=== PATIENT | male | born 1980 | race Caucasian/White ===

== ENCOUNTER 2018-01-31 15:00 | Emergency (ER) | payer SELFPAY ==
--- OUTSIDE RECORDS SUMMARY | 2018-01-31 15:24 | XMS REPORT ---
:1980 Author Organization [facility] Care Team Providers Name Role Phone DIANNLEAJANETTDilipLESLEY JOHNSON Unavailable Unavailable NONE, NONE Unavailable Unavailable Harris Arteaga Unavailable DarioRashad gleason Unavailable Allergies and Adverse Reactions Allergen Qualifier Severity Reaction(s) Comments Penicillins Sulfa Antibiotics Problems Problem Onset Date Resolved Date Status Comments No information available Hospital Admission Diagnosis Admission Diagnosis Onset Date Resolved Date Status Comments No information available Medications Home Medications Details None Medications Administered Medication Orders Details Ibuprofen Oral 800 mg (NOW x1) Administered Route Dose Bolus/Duration Rate/Duration Additive/Diluents/ Constituents Location Comments Date/Time Medications Ibuprofen PO 800 Given: Oral mg 01/27/2018 18:31 Hospital Discharge Medications Hospital Discharge Prescribed Medication None Procedures Procedure Date Performed Comments Short Arm Splint Jan 27, 2018 Short Arm Splint Jan 27, 2018 Functional Status Functional and Cognitive Assessment Documentation Date Condition Status No impairments noted 01/27/2018 Active Immunizations Medication Dose/Units Lot# Exp. Date Plastic And Reconstructive Surgeon Name Given No information available Results HAND-LEFT (MsgRcvd 01/27/2018 18:45)Final Results Test Result Flag Reference Range HISTORY: Left hand pain from trauma. Blunt trauma to hand. Moderate to severe diffuse pain and edema. TECHNIQUE: 5 views of the left hand were obtained. COMPARISON: No prior studies are available for comparison. FINDINGS: There is a spiral fracture of the distal diaphysis of the left fourth metacarpal. There is no significant angulation or displacement. No other fractures are seen. Joint spaces are well-maintained. The soft tissues are unremarkable. IMPRESSION: Left fourth metacarpal fracture. Electronically Signed By: DANIAL ESTRADA MD Date: 01/27/2018 18:44 Social History Social History Element Description Effective Dates Sex Male 1980 Smoking heavy tobacco smoker Unknown Vital Signs Weight: 65.7 kg (145 lb) at 01/27/2018 5:51:00 PMHeight: 175.2 cm (69 inches) at 01/27/2018 5:51:00 PMBMI (Body Mass Index): 21.4 kg/m2 at 01/27/2018 5:51:00 PM Date/Time Blood Pressure Heart Rate Respiratory Rate Temperature O2 Saturation 01/27/2018 115/82 mmHg 79 /minute 15 /minute 36.83 C 99% 5:51:53 PM Hospital Discharge Instructions Instruction Thank you for visiting the [facility]Emergency Department. You have been evaluated today by ARLET KENT, for the following condition(s): Closed nondisplaced fracture of the shaft of the fourth metacarpal of the left hand. The following test(s) and/or procedure(s) were performed during your visit today. Diagnostic Studies Hand-Left Procedures Short arm splint INSTRUCTIONS Apply ice. Elevate affected areas above chest level. Wear fiberglass splint. Warnings: GENERAL WARNINGS: Return or contact your physician immediately if your condition worsens or changes unexpectedly, if not improving as expected, or if other problems arise. OTC Medications: Take acetaminophen (Tylenol) and ibuprofen (such as Advil, Motrin or Nuprin) according to label instructions. Available over the counter. Follow-up: Return to the emergency department if not better. Understanding of the discharge instructions verbalized by patient. Follow-up with: Harris Arteaga Dr., Pulmonary, , [address] [place] [address], [id number] Follow up in two days even if well. Call for an appointment. Reason for referral: evaluation and treatment. Follow-up with: Rashad Ledesma M.D., Ortho, , [facility], [address] [place] [address], [id number] Follow up in two days even if well. Call for an appointment. Reason for referral: evaluation and treatment. ADDITIONAL INFORMATION Closed Hand Fracture (Adult)You have a fracture, or broken bone, in your hand. This may be a small crack or chip in the bone. Or it may be a major break with the broken parts pushed out of place. A closed fracture means that the b roken bone has not gone through the skin. A hand fracture is treated with a splint or cast. It usually takes 4 to 6 weeks to heal. Severe injuries may require surgery. Home careKeep your arm elevated to reduce pain and swelling. When sitting or lying down, elevate your arm above the level of your heart. You can do this by placing your arm on a pillow that rests on your chest o r on a pillow at your side. This is most important during the first 48 hours after injury.Apply an ice pack over the injured area forno more than 15 to20 minutes. Do this every 1 to 2 hours f or the first 24 to 48 hours. Continue with ice packs as needed to ease pain and swelling. To make an ice pack, put ice cubes in a plasticbag that seals at the top. Wrap the bag in aclean, thintowel or c loth. Never put ice or an ice pack directly on the skin. You can place the ice pack inside the sling and directly over the cast or splint. As the ice melts, be careful that the cast or splint doesnt get wet. Keep the cast or splint completely dry at all times. Bathe with your cast or splint out of the water, protected with 2large plastic bags. Place 1 bag outside the other. Tape eachbag with duct tapeat the top end. If a fiberglass cast or splint gets wet, dry it with a hair dryeron a cool setting.You may [id number] pain medicine to control pain, unless another pain medicine was prescribe d. If you have chronic liver or kidney disease or ever had a stomach ulcer or GI bleeding, talk with your provider beforeusing these medicines. Follow-up care Follow up with your healthcare provider within 1 week, or as advised. This is to be sure the bone is healing properly. If you were given a splint, it may be changed to a cast at your follow-up visit. If X-rays were taken, you will be toldof any new findings that may affect your care. When to seek medical adviceCall your healthcare provider right away if any of these occur: The plaster cast or splint becomes wet or softThe fiberglass cast or splint stays wet for more than 24 hoursThe cast has a bad smellThe plaster cast or splint becomes looseThere is increased tightness or pain under the cast or splint The fingers on your injured hand become swollen, cold, blue, numb, or tingly [id number] [employer] [address] [place] [address]. All rights reserved. This information is not intended as a substitute for professional medical care. Always follow your healthcare professional's instructions. Hospital Discharge Diagnoses Diagnosis Onset Date Resolved Date Status Comments Fractured Metacarpal Active Reason For Visit hand injury Reason For Referral None Health Concerns Section Concern Status No information available Medical Equipments Implanted Device Manufacturing Date Expiration Date No information available Assessments Assessment You have been evaluated by ARLET KENT for the following conditions: Closed nondisplaced fracture of the shaft of the fourth metacarpal of the left hand. The following test(s) and/or procedure(s) were performed during your visit today. Diagnostic Studies: Hand-Left Procedures: Short arm splint Goals Observation Goal Status No information available Treatment Plan Planned Care Start Date No information available Encounters Encounter Diagnosis Location Date Fractured Metacarpal [facility] 01/27/2018
[2018-01-31 15:59] VITALS: BP 115/72
--- NOTE | 2018-01-31 17:21 | RAD ---
INDICATION: Pain overlying the second through fifth metacarpals after a "rock fell on hand" 5 days earlier COMPARISON: None. TECHNIQUE: 4 views of the left hand were obtained. FINDINGS: There is an obliquely oriented fracture, slightly displaced, at the distal left fourth metacarpal metaphysis. The remaining visualized bones are intact and appropriately aligned. IMPRESSION: Left fourth metacarpal fracture as described above.
--- NOTE | 2018-01-31 17:34 | UC ---
Upper Extremity HPI - HPI Summary HPI Summary: Pt c/o left hand paina dn swelling that began on 01/26/18 after 20lb rock fell on hand at work. Pt was seen in ER in [place], [place]. Pt was diagnosed with left hand fracture and placed in temporary splint. Pt has not follow ed up with orthodpedic provider since injury as hestaes" he has been working". Pt removed temporary splint the eveningof 01/30/18 and now presents with c/o worsening pain , numbness from palm of hand radiating to fingers 3-5 and proximally to elbow. and difficulty making fist, and moving fingers. - History of Current Complaint Chief Complaint: UCUpperExtremity Stated Complaint: LEFT HAND INJURY - W/C Time Seen by Provider: 01/31/18 16:16 Hx Obtained From: Patient ?: No Onset/Duration: Sudden Onset, Gradual Onset, Lasting Days, Worse Since - onset Severity Initially: Severe Severity Currently: Severe Pain Intensity: 9 Location Of Pain: Is Discrete @, Radiates To Character: Dull, Aching, Stiffness, Burning Aggravating Factor(s): Movement, Lifting, Flexion, Extension Alleviating Factor(s): Nothing Associated Signs And Symptoms: Positive: Swelling, Numbness/Tingling Related History: Dominant Hand Right - Risk Factors Non-Orthopedic Risk Factor: Negative DVT Risk Factors: Recent Trauma Septic Arthritis Risk Factor: Negative Compartment Syndrome Risk Factors: Pain, Paresthesias - Allergies/Home Medications Allergies/Adverse Reactions: Allergies Allergy/AdvReac Type Severity Reaction Status Date / Time Penicillins Allergy Unknown Rash Verified 01/31/18 15:47 Sulfa (Sulfonamide Allergy Unknown EYES SWELL Verified 01/31/18 15:47 Antibiotics) SHUT Home Medications: Home Medications Ibuprofen TAB* [Advil TAB*] 1,030 mg PO Q6H PRN 01/31/18 [History Confirmed ] PMH/Surg Hx/FS Hx/Imm Hx Previously Healthy: Yes - Surgical History Surgical History: None - Family History Known Family History: Positive: Cardiac Disease - Social History Occupation: Employed Full-time Alcohol Use: Occasionally Substance Use Type: None Smoking Status (MU): Light Every Day Tobacco Smoker Type: Cigarettes Amount Used/How Often: 1/2 PPD Have You Smoked in the Last Year: Yes Review of Systems Constitutional: Negative Skin: Bruising Eyes: Negative ENT: Negative Respiratory: Negative Cardiovascular: Negative Gastrointestinal: Negative Genitourinary: Negative Motor: Decreased ROM, Weakness Neurovascular: Decreased Sensation - left hand, fingers 3-5 and plam of hand Musculoskeletal: Arthralgia, Decreased ROM, Edema, Myalgia, Other: - pt's hand is not firm, c/o pain with examination, all 5 fingers with btisk capillary refill, all are warm to touch, pink, but wiht diminished sensitivity to soft and sharp stimuli. Dr. Rubio consulted and recommended to f/u tomorrow with her or Dr. Sumner. Neurological: Negative Psychological: Negative Is Patient Immunocompromised?: No All Other Systems Reviewed And Are Negative: Yes Physical Exam Triage Information Reviewed: Yes Appearance: Pain Distress Vital Signs: Initial Vital Signs Temp 98.4 F 01/31/18 15:48 Pulse 79 01/31/18 15:48 Resp 16 01/31/18 15:48 BP 115/72 01/31/18 15:48 Pulse Ox 99 01/31/18 15:48 Vital Signs Reviewed: Yes Eye Exam: Normal ENT: Positive: Hearing grossly normal Dental Exam: Normal Neck exam: Normal Respiratory Exam: Normal Respiratory: Positive: No respiratory distress Cardiovascular Exam: Normal Musculoskeletal: Positive: Strength Limited @, ROM Limited @, Edema @, Other: - pt's hand is not firm, c/o pain with examination, all 5 fingers with btisk capillary refill, all are warm to touch, pink, but wiht diminished sensitivity to soft and sharp stimuli. Dr. Rubio consulted and recommended to f/u tomorrow with her or Dr. Sumner. Neurological Exam: Normal Psychological Exam: Normal Skin Exam: Normal Diagnostics - Radiology No standard instances Radiology Interpretation Completed By: Radiologist - There is an obliquely oriented fracture, slightly displaced, at the distal left fourth metacarpal metaphysis. The remaining visualized bones are intact and appropriately aligned. Upper Extremity Course/Dx - Course Course Of Treatment: I disucssed with the pt the need to f/u with orhtopedics either Dr. usmner or Dr. Rubio as soon as possible. Pt verbalized understanding and agreed to plan of care. - Differential Dx/Diagnosis Differential Diagnosis/HQI/PQRI: Fracture (Closed), Other - compartment syndrome Provider Diagnoses: left hand fracture. neuritis Discharge - Sign-Out/Discharge Documenting (check all that apply): Patient Departure All imaging exams completed and their final reports reviewed: Yes - Discharge Plan Condition: Stable Disposition: HOME Patient Education Materials: Hand Fracture (ED) Forms: *Work Release Referrals: Joey Sumner MD [Medical Doctor] - As Soon As Possible No Primary Care Phys,NOPCP [Primary Care Provider] - Aruna Rubio MD [Medical Doctor] - As Soon As Possible - Billing Disposition and Condition Condition: STABLE Disposition: Home
[2018-01-31] MEDS ORDERED: traMADol TAB* 50 MG PO ONE ×2 (17:36→17:44)
== END 2018-01-31 17:56 | disposition home or self-care (01) ==
LOC: UCCORT 15:00
DX: S62.335D Displaced fracture of neck of fourth metacarpal bone, left hand, subsequent encounter for fracture with routine healing (principal); W20.8XXD Other cause of strike by thrown, projected or falling object, subsequent encounter; F17.210 Nicotine dependence, cigarettes, uncomplicated; Z91.19 Patient's noncompliance with other medical treatment and regimen
CPT/HCPCS: 26600; 99202; A9270-GY; G0463